=== PATIENT | female | born 2000 | race Caucasian/White ===

== ENCOUNTER 2020-05-15 17:25 | Inpatient (IN) ==
[2020-05-15 18:21] LABS: Appearance Urine Clear (Clear); Bacteria Urine Automated Negative (Negative); Bilirubin Urine Negative (Negative); Blood Urine 3+ (Negative); Color Urine Yellow; Epithelial Cell Urine Auto 20-30 /lpf (0-5); Glucose Urine UA Negative (Negative); Ketones Urine Negative (Negative); Leukocyte Esterase Urine Negative (Negative); Nitrite Urine Negative (Negative); Protein Urine Negative (Negative); RBC Urine Automated 0-4 /hpf (0-4); Urobilinogen Urine Negative (Negative); pH Urine 7.5 (4.5-7.5)
[2020-05-15] MEDS ORDERED: lamoTRIgine 25 MG TAB PO ONE (18:25)
[2020-05-15] MEDS ORDERED: DOXYCYCLINE HYCLATE 100 MG CAP PO STA (18:25)
[2020-05-15 18:29] LABS: Basophils # (auto) 0.03 K/uL (0-0.2); Basophils % (auto) 0.3 %; Eosinophils # (auto) 0.08 K/uL (0-0.5); Eosinophils % (auto) 0.7 %; Hematocrit (blood only) 41.4 % (37-47); Hemoglobin 14.3 g/dL (12.0-16.0); Immature Granulocytes # (auto) 0.02 K/uL (0.00-0.02); Immature Granulocytes % (auto) 0.2 %; Lymphocytes # (auto) 2.42 K/uL (1.2-3.4); Lymphocytes % (auto) 21.4 %; Mean Corpuscular Hemoglobin 33.4 pg (25-34); Mean Corpuscular Hgb Conc 34.5 g/dL (32-36); Mean Corpuscular Volume 96.7 fL (80-100); Mean Platelet Volume 10.4 fL (7.4-10.4); Monocytes # (auto) 0.88 K/uL (0.11-0.59); Monocytes % (auto) 7.8 %; Neutrophils # (auto) 7.86 K/uL (1.4-6.5); Neutrophils % (auto) 69.6 %; Platelet Count 297 K/uL (130-400); RDW Coefficient of Variation 12.6 % (11.5-14.5); RDW Standard Deviation 44.2 fL (36.4-46.3); Red Blood Count 4.28 M/uL (4.2-5.4); White Blood Count 11.29 K/uL (4.8-10.8)
--- NOTE | 2020-05-15 18:31 | Emergency Department Note ---
Impression & Plan Depression with suicidal ideation, Folliculitis ED Provider Note Provider: Surinder Montague MD DATE OF SERVICE:05/15/2020 CHIEF COMPLAINT: Mental health evaluation HISTORY OF PRESENT ILLNESS: Patient is a 19-year-old female history of depression presenting today stating that she is had worsening depression and suicidal ideations over the last several weeks. Patient states he has had some long-term issues and has had some cutting in the past since at least middle school. Patient states this semester with the pandemic and being a [employer] student things have worsened particularly over the last month or so. Patient states that she is currently seeing a therapist twice a week and does have a psychiatrist. Has been on Lamictal but states things are going really well so she stopped it and is now just being retitrated up on it. She states she is having more intrusive thoughts of wanting to cut herself and to bleed out or possibly to jump off the balcony. Patient states she is not made attempts to do this but is feeling unsafe. Patient states he currently is older twin sister who also has some issues going on but does not elaborate. Patient states she is not been sleeping well and not doing class work well and has mainly been staying at home. 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 Was seen by doctor 6 days ago and tested for STDs which was negative. Had strep throat and did report some possible overlying skin infe ction started on doxycycline for this. Patient states is not improving that much which continues to pick at it some. Denies significant pain or vaginal discharge at this time. Denies significant abdominal pain. Denies fever. REVIEW OF SYSTEMS: A total of 10 review of systems was obtained and negative except as stated above in the HPI. PAST MEDICAL HISTORY: As noted above MEDICATIONS: Reviewed home medications with the patient SOCIAL HISTORY: [employer] student, lives in apartment here with twin sister but originally from the [place] area PHYSICAL EXAM: GENERAL: alert and oriented in no acute distress on stretcher Head: normocephalic and atraumatic EYES: No injection, discharge or icterus. ENT: Mucous membranes pink and moist. LUNGS: Airway patent. No retractions. Breath sounds clear with good air entry bilaterally. HEART: Regular rate and rhythm. No chest wall tenderness SKIN: Acyanotic, warm, dry, without rashes noted on the visual skin. With her chief risk officer later on me to visualize slight folliculitis in the groin region and on the left outer labia with some tenderness but no clear large fluctuant mass for drainage. EXTREMITIES: Without swelling, tenderness or deformity NEUROLOGICAL: No focal deficits. No aphasia. No facial droop or slurred speech. Psych: States she has depression anxiety but a fairly normal affect. Denies any HI. Reports the depression is gone to the point was having some suicidal thoughts but is not acted on these. Patient's laboratory studies reviewed. Differential includes Mood disorder, infection, hypoglycemia, electrolyte abno rmalities, cardiac sources, intracerebral event, toxicologic, trauma, neurologic, as well as other pathologies. IMPRESSION/MEDICAL DECISION MAKING: Patient presents in basic medical laboratory studies were ordered. Urinalysis is unremarkable. Leukocyte does 11.29 is nonspecific. No significant toxicology abnormalities noted. Appears well and does not appear septic at this time. States she has been picking little bit has some of a skin groin infection but declines further evaluation here for this states she is already been seen for and on an antibiotic. Later patient's mother arrived and discussed findings. At that point with her chief risk officer the area was observed and looks like some folliculitis and possibly early linings for slight abscess. Nothing I think drainable at this time. We will put on a course of Keflex for 5 days and extend the doxycycline for an additional 5 days. Discussed with her her underlying psychiatric issues and recently going back on Lamictal. Home dose of Lamictal and doxycycline ordered as she has not taken them yet today. Patient states she has not been in discussion with her parents until this evening and they are on the way to the hospital. Seen in conjunction with psychiatric caseworker intake. Patient endorses some anxiety depression and having some suicidal thoughts now some slightly more intrusive thoughts of planning to harm her self but has not acted. Does have outpatient psychiatrist and therapist. Patient requesting inpatient treatment bleed is reasonable given her worsening depression with suicidal ideation. Patient's mother in agreement. Referrals to [facility] S. were made. Covid negative at this time. Accepted to for further care and treatment on . DIAGNOSIS: Depression with suicidal ideation, folliculitis DISPOSITION: Referrals for inpatient psychiatric treatment. Past Med/Surg History Social History Smoking Status: Never smoker Preferred Language: Swedish Feels Safe at Home: Yes Allergies Allergies Allergy/AdvReac Type Severity Reaction Status Date / Time No Known Allergies Allergy Verified 05/15/20 18:00 Home Meds Home Medications Medication Instructions Recorded Confirmed doxycycline hyclate 100 mg PO BID 05/15/20 05/15/20 lamotrigine [Lamictal] 25 mg PO DAILY 05/15/20 05/15/20 norethindrone-ethin estradiol 1 tab PO DAILY 05/15/20 05/15/20 [Norethin 1/35E (28)] Results & Data (ED) Vital Signs Vital Signs - 24 hr 05/15/20 17:36 05/15/20 18:35 05/15/20 19:20 Temperature 36.9 C Temperature Source Oral Pulse Rate 117 H Pulse Rate [Finger] 62 70 Pulse Rhythm Regular Pulse Rhythm [Finger] Regular Pulse Strength Normal Pulse Strength [Finger] Normal Respiratory Rate 16 16 18 Respiratory Effort / Characteristics Non-Labored Non-Labored Non-Labored Respiratory Depth Normal Normal Normal Respiratory Pattern Regular Regular Blood Pressure 122/85 Blood Pressure [Right Arm] 100/79 115/72 Blood Pressure Mean 97 Blood Pressure Mean [Right Arm] 86 86 Blood Pressure Position Sitting Blood Pressure Position [Right Arm] Sitting Pulse Oximetry 96 98 98 Oxygen Delivery Method Room Air Room Air Room Air Sepsis Recent Fever Within 48 Hours No Sepsis New/Unexplained Change in Mental Status N/A Sepsis Action Taken by Nursing No Action Required Laboratory Data Result diagrams: 05/15/20 18:02 05/15/20 18:02 Lab Results 05/15/20 05/15/20 05/15/20 Range/Units 17:56 17:56 17:56 WBC (4.8-10.8) K/uL RBC (4.2-5.4) M/uL Hgb (12.0-16.0) g/dL Hct (37-47) % MCV (80-100) fL MCH (25-34) pg MCHC (32-36) g/dL RDW Std Deviation (36.4-46.3) fL RDW Coeff of Vinnie (11.5-14.5) % Plt Count (130-400) K/uL MPV (7.4-10.4) fL Immature Gran % (Auto) % Neut % (Auto) % Lymph % (Auto) % Newberry % (Auto) % Eos % (Auto) % Baso % (Auto) % Neut # (Auto) (1.4-6.5) K/uL Lymph # (Auto) (1.2-3.4) K/uL Newberry # (Auto) (0.11-0.59) K/uL Eos # (Auto) (0-0.5) K/uL Baso # (Auto) (0-0.2) K/uL Immature Gran # (Auto) (0.00-0.02) K/uL Sodium (136-145) mmol/L Potassium (3.5-5.1) mmol/L Chloride (98-107) mmol/L Carbon Dioxide (21-32) mmol/L Anion Gap (3-11) BUN (7-18) mg/dl Creatinine (0.6-1.2) mg/dl Est Cr Clr Drug Dosing ml/min Est GFR ( Amer) Est GFR (Non-Af Amer) BUN/Creatinine Ratio (10-20) Glucose (70-99) mg/dl Calcium (8.5-10.1) mg/dl Total Bilirubin (0.2-1) mg/dl AST (15-37) U/L ALT (12-78) U/L Alkaline Phosphatase (45-117) U/L Total Protein (6.4-8.2) gm/dl Albumin (3.4-5.0) gm/dl Globulin (2.5-4.0) gm/dl Albumin/Globulin Ratio (0.9-2) TSH (0.300-4.500) uIu/ml Urine Color Yellow Urine Appearance Clear (Clear) Urine pH 7.5 (4.5-7.5) Ur Specific Garfield 1.010 (1.000-1.030) Urine Protein Negative (Negative) Urine Glucose (UA) Negative (Negative) Urine Ketones Negative (Negative) Urine Blood 3+ H (Negative) Urine Nitrite Negative (Negative) Urine Bilirubin Negative (Negative) Urine Urobilinogen Negative (Negative) Ur Leukocyte Esterase Negative (Negative) Urine WBC (Auto) 1-5 (0-5) /hpf Urine RBC (Auto) 0-4 (0-4) /hpf U Hyaline Cast (Auto) 1-5 (0-5) /lpf U Epithel Cells (Auto) 20-30 H (0-5) /lpf Urine Bacteria (Auto) Negative (Negative) POC Ur Test NEG (NEG) Salicylates (2.8-20) mg/dl Urine Opiates Screen Neg (Neg) Ur Methadone, Qual Neg (Neg) Acetaminophen (10-30) ug/ml Urine Barbiturates Neg (Neg) Ur Phencyclidine (PCP) Neg (Neg) U Amphetamin/Meth Scrn Neg (Neg) MDMA (Ecstasy) Screen Neg (Neg) U Benzodiazepines Scrn Neg (Neg) Ur Cocaine Metabolite Neg (Neg) U Marijuana (THC) Screen Pos H (Neg) Ethyl Alcohol mg/dL (0-3) mg/dl COVID-19 Eval Order SARS-CoV-2, RNA, NAAT (NEGATIVE) 05/15/20 05/15/20 05/15/20 Range/Units 18:02 18:02 18:02 WBC 11.29 H (4.8-10.8) K/uL RBC 4.28 (4.2-5.4) M/uL Hgb 14.3 (12.0-16.0) g/dL Hct 41.4 (37-47) % MCV 96.7 (80-100) fL MCH 33.4 (25-34) pg MCHC 34.5 (32-36) g/dL RDW Std Deviation 44.2 (36.4-46.3) fL RDW Coeff of Vinnie 12.6 (11.5-14.5) % Plt Count 297 (130-400) K/uL MPV 10.4 (7.4-10.4) fL Immature Gran % (Auto) 0.2 % Neut % (Auto) 69.6 % Lymph % (Auto) 21.4 % Newberry % (Auto) 7.8 % Eos % (Auto) 0.7 % Baso % (Auto) 0.3 % Neut # (Auto) 7.86 H (1.4-6.5) K/uL Lymph # (Auto) 2.42 (1.2-3.4) K/uL Newberry # (Auto) 0.88 H (0.11-0.59) K/uL Eos # (Auto) 0.08 (0-0.5) K/uL Baso # (Auto) 0.03 (0-0.2) K/uL Immature Gran # (Auto) 0.02 (0.00-0.02) K/uL Sodium 139 (136-145) mmol/L Potassium 3.5 (3.5-5.1) mmol/L Chloride 109 H (98-107) mmol/L Carbon Dioxide 24 (21-32) mmol/L Anion Gap 6.0 (3-11) BUN 6 L (7-18) mg/dl Creatinine 0.66 (0.6-1.2) mg/dl Est Cr Clr Drug Dosing 118.4 ml/min Est GFR ( Amer) 148.4 Est GFR (Non-Af Amer) 128.1 BUN/Creatinine Ratio 8.7 L (10-20) Glucose 115 H (70-99) mg/dl Calcium 9.6 (8.5-10.1) mg/dl Total Bilirubin 0.2 (0.2-1) mg/dl AST 42 H (15-37) U/L ALT 69 (12-78) U/L Alkaline Phosphatase 80 (45-117) U/L Total Protein 7.4 (6.4-8.2) gm/dl Albumin 3.8 (3.4-5.0) gm/dl Globulin 3.6 (2.5-4.0) gm/dl Albumin/Globulin Ratio 1.0 (0.9-2) TSH 0.740 (0.300-4.500) uIu/ml Urine Color Urine Appearance (Clear) Urine pH (4.5-7.5) Ur Specific Garfield (1.000-1.030) Urine Protein (Negative) Urine Glucose (UA) (Negative) Urine Ketones (Negative) Urine Blood (Negative) Urine Nitrite (Negative) Urine Bilirubin (Negative) Urine Urobilinogen (Negative) Ur Leukocyte Esterase (Negative) Urine WBC (Auto) (0-5) /hpf Urine RBC (Auto) (0-4) /hpf U Hyaline Cast (Auto) (0-5) /lpf U Epithel Cells (Auto) (0-5) /lpf Urine Bacteria (Auto) (Negative) POC Ur Test (NEG) Salicylates < 1.7 L (2.8-20) mg/dl Urine Opiates Screen (Neg) Ur Methadone, Qual (Neg) Acetaminophen 8 L (10-30) ug/ml Urine Barbiturates (Neg) Ur Phencyclidine (PCP) (Neg) U Amphetamin/Meth Scrn (Neg) MDMA (Ecstasy) Screen (Neg) U Benzodiazepines Scrn (Neg) Ur Cocaine Metabolite (Neg) U Marijuana (THC) Screen (Neg) Ethyl Alcohol mg/dL (0-3) mg/dl COVID-19 Eval Order SARS-CoV-2, RNA, NAAT (NEGATIVE) 05/15/20 05/15/20 05/15/20 Range/Units 18:02 19:07 19:07 WBC (4.8-10.8) K/uL RBC (4.2-5.4) M/uL Hgb (12.0-16.0) g/dL Hct (37-47) % MCV (80-100) fL MCH (25-34) pg MCHC (32-36) g/dL RDW Std Deviation (36.4-46.3) fL RDW Coeff of Vinnie (11.5-14.5) % Plt Count (130-400) K/uL MPV (7.4-10.4) fL Immature Gran % (Auto) % Neut % (Auto) % Lymph % (Auto) % Newberry % (Auto) % Eos % (Auto) % Baso % (Auto) % Neut # (Auto) (1.4-6.5) K/uL Lymph # (Auto) (1.2-3.4) K/uL Newberry # (Auto) (0.11-0.59) K/uL Eos # (Auto) (0-0.5) K/uL Baso # (Auto) (0-0.2) K/uL Immature Gran # (Auto) (0.00-0.02) K/uL Sodium (136-145) mmol/L Potassium (3.5-5.1) mmol/L Chloride (98-107) mmol/L Carbon Dioxide (21-32) mmol/L Anion Gap (3-11) BUN (7-18) mg/dl Creatinine (0.6-1.2) mg/dl Est Cr Clr Drug Dosing ml/min Est GFR ( Amer) Est GFR (Non-Af Amer) BUN/Creatinine Ratio (10-20) Glucose (70-99) mg/dl Calcium (8.5-10.1) mg/dl Total Bilirubin (0.2-1) mg/dl AST (15-37) U/L ALT (12-78) U/L Alkaline Phosphatase (45-117) U/L Total Protein (6.4-8.2) gm/dl Albumin (3.4-5.0) gm/dl Globulin (2.5-4.0) gm/dl Albumin/Globulin Ratio (0.9-2) TSH (0.300-4.500) uIu/ml Urine Color Urine Appearance (Clear) Urine pH (4.5-7.5) Ur Specific Garfield (1.000-1.030) Urine Protein (Negative) Urine Glucose (UA) (Negative) Urine Ketones (Negative) Urine Blood (Negative) Urine Nitrite (Negative) Urine Bilirubin (Negative) Urine Urobilinogen (Negative) Ur Leukocyte Esterase (Negative) Urine WBC (Auto) (0-5) /hpf Urine RBC (Auto) (0-4) /hpf U Hyaline Cast (Auto) (0-5) /lpf U Epithel Cells (Auto) (0-5) /lpf Urine Bacteria (Auto) (Negative) POC Ur Test (NEG) Salicylates (2.8-20) mg/dl Urine Opiates Screen (Neg) Ur Methadone, Qual (Neg) Acetaminophen (10-30) ug/ml Urine Barbiturates (Neg) Ur Phencyclidine (PCP) (Neg) U Amphetamin/Meth Scrn (Neg) MDMA (Ecstasy) Screen (Neg) U Benzodiazepines Scrn (Neg) Ur Cocaine Metabolite (Neg) U Marijuana (THC) Screen (Neg) Ethyl Alcohol mg/dL < 3.0 (0-3) mg/dl COVID-19 Eval Order Covid19 [facility] SARS-CoV-2, RNA, NAAT NEGATIVE (NEGATIVE) Administered Medications Discontinued Medications Cephalexin HCl (Cephalexin 250 Mg Cap) 500 mg PO NOW ONE Stop: 05/15/20 21:04 Last Admin: 05/15/20 21:18 Dose: 500 mg Documented by: [id number] Doxycycline Hyclate (Doxycycline Hyclate 100 Mg Cap) 100 mg PO NOW STA Stop: 05/15/20 18:26 Last Admin: 05/15/20 21:18 Dose: 100 mg Documented by: [id number] Lamotrigine (Lamotrigine 25 Mg Tab) 25 mg PO ONCE ONE Stop: 05/15/20 18:26 Last Admin: 05/15/20 18:45 Dose: 25 mg Documented by: [id number] Discharge Plan Visit Data Chief Complaint: Mental Health Evaluation Stated Complaint: MENTAL HEALTH EVAL ED Provider: Surinder Montague Discharge Problem: Depression with suicidal ideation, Folliculitis Patient Disposition: Admitted As Inpatient Discharge Instructions Interventions: ED Discharge Assessment Last Done: 05/15/20 22:19
[2020-05-15 18:50] LABS: Albumin Level 3.8 gm/dl (3.4-5.0); BUN Creatinine Ratio 8.7 (10-20); Calcium 9.6 mg/dl (8.5-10.1); Creatinine Clr Calc Pharmacy 118.4 ml/min; Est GFR (African American) 148.4; Est GFR (Non-African American) 128.1; Potassium 3.5 mmol/L (3.5-5.1)
[2020-05-15 18:52] LABS: Acetaminophen 8 ug/ml (10-30); Salicylate < 1.7 mg/dl (2.8-20)
[2020-05-15 19:01] LABS: Bilirubin,Total 0.2 mg/dl (0.2-1); Globulin 3.6 gm/dl (2.5-4.0); Thyroid Stimulating Hormone 0.74 uIu/ml (0.300-4.500); Total Protein 7.4 gm/dl (6.4-8.2)
[2020-05-15 19:03] LABS: Amphetamines+Metham, Urine Neg (Neg); Barbiturates, Urine Neg (Neg); Benzodiazepine, Urine Neg (Neg); Cocaine, Urine Neg (Neg); MDMA (Ecstacy), Urine Neg (Neg); Methadone, Urine Neg (Neg); Opiate, Urine Neg (Neg); Phencyclidine, Urine Neg (Neg)
[2020-05-15] MEDS ORDERED: cephALEXin 250 MG CAP PO ONE (21:03)
[2020-05-15] MEDS ORDERED: hydrOXYzine HCl 25 MG TAB PO PRN (22:26)
[2020-05-15] MEDS ORDERED: SODIUM CHLORIDE 0.65% NA SOLN 45 ML (OCEAN) PRN (22:26)
[2020-05-15] MEDS ORDERED: MAGNESIUM HYDROXIDE SUSP 30 ML UDC PO PRN (22:26)
[2020-05-15] MEDS ORDERED: ALUMINUM/MAGNESIUM SUSP 30 ML UDC PO PRN (22:26)
[2020-05-15] MEDS ORDERED: BISMUTH SUBSALICYLATE LIQD 236 ML PO PRN (22:26)
[2020-05-15] MEDS: ACETAMINOPHEN 325 MG TAB PO PRN (23:12)
[2020-05-15] MEDS: hydrOXYzine HCl 25 MG TAB PO PRN (23:45)
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
[2020-05-16] MEDS: ACETAMINOPHEN 325 MG TAB PO PRN ×2 (08:23→17:40)
[2020-05-16] MEDS: cephALEXin 500 MG CAP PO SCH ×4 (08:48→21:10)
[2020-05-16] MEDS: lamoTRIgine 25 MG TAB PO SCH (08:48)
[2020-05-16] MEDS: DOXYCYCLINE HYCLATE 100 MG CAP PO SCH ×2 (08:48→21:11)
[2020-05-16] MEDS: ORAL CONTRACEPTIVE: ORDER AWAITING ACTION SCH ×2 (13:31→17:38)
[2020-05-16] MEDS: hydrOXYzine HCl 25 MG TAB PO PRN (23:59)
[2020-05-17] MEDS: DOXYCYCLINE HYCLATE 100 MG CAP PO SCH ×2 (08:43→20:44)
[2020-05-17] MEDS: cephALEXin 500 MG CAP PO SCH ×4 (08:43→20:44)
[2020-05-17] MEDS: lamoTRIgine 25 MG TAB PO SCH (08:43)
[2020-05-17] MEDS: ACETAMINOPHEN 325 MG TAB PO PRN (08:44)
[2020-05-17] MEDS: ORAL CONTRACEPTIVE: ORDER AWAITING ACTION SCH ×3 (08:46→23:42)
--- NOTE | 2020-05-17 09:20 | Psychiatric Progress Note ---
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 She has been poorly adherent with lamotrigine, but has been taking it for the past 5 days, and agreed to take it as prescribed, after reviewing risks of nonadherence. She has outpatient therapist and nurse practitioner in the [place] area, and parents/siblings are supportive. 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 Inpatient treatment is medically necessary due to the severity of symptoms and risk for suicide if discharged. (1) Bipolar 1 disorder: 05/16 - Reviewed diagnoses with patient and treatment recommendations including use of medications and therapy. Reviewed risks, benefits, and side effects of lamotrigine, as well as alternatives (although other mood stabilizers have higher side effect burden). She agreed to continue/resume the medication, and reviewed importance of taking daily, and risk of SJS. Continue 25 mg daily, and as she has only been taking it daily for the past 5 days, will increase to 50 mg daily in another 15 days (05/30/2020). -Reviewed ways to improve medication adherence, and her h/o problems taking pills, which she relates to her experiences with having health issues as an adolescent, when she was taking medication for chronic pain and feeling distres sed, and feeling her parents didn't care/understand - now triggers memories of this when she has to take pills. We will continue to process and work on this in therapy here. -Coordinate care with outpatient clinician, Stanislav Villa STORE FACILITY TECHNICIAN at [facility] - called and left message requesting call to discuss care. -Family meeting with parents/sister. 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 -Suicide checks for safety. Encourage group attendance participation, work on healthy coping skills and discharge safety plan. 05/17 - Continue as above - patient continues to verbalize desire to remain on lamotrigine. Previous dose was reportedly 100mg, but patient states additional titration had been considered in the past. - Continue to encourage medication adherence - Schedule family meeting - patient requesting both parents and sister participate - Student Care and Advocacy referral (2) Anorexia: 05/16 -anorexia nervosa, restricting type. BMI in the normal range at 22.6, but actively restricts calories and believes she needs to lose weight. She has never had eating disorder treatment in the past, and reviewed that although this will not be a focus of her treatment here, she may benefit from ED treatment. She could access this through [facility] when in [place], but if retu rning home for the next couple of months we will need to explore options in the [place] area. Began discussion of reviewing food as medicine that she needs for her body to heal/work optimally, both from the perspective of improving/stabilizing her mood and allowing for optimal cognitive function/school performance. 05/17 - No concerns reported by staff regarding intention restriction or other eating concerns - Pt did have an episode of emesis yesterday morning - but presumed to be due to taking antibiotic medication with little food (3) Depersonalization: 05/16 -patient reports many years of depersonalization and derealization, which she has been discussing with her therapist. -Work on grounding techniques, deep breathing and meditation. 05/17 - Pt speaks more about this today - we reviewed grounding techniques and mindfulness that may help with these episodes - Pt encouraged to continue this conversation with her outpatient therapist as well (4) Folliculitis: 05/16 -continue doxycycline 100 mg twice daily X 5 days, and cephalexin 500 mg 4 times daily X 5 days per ER recommendations. Follow-up with [facility] if in [place], or PCP in [place] if she returns home with parents after discharge. -Behavioral techniques for decreasing skin picking. (5) Sexually active: 05/16 -patient is currently sexually active and has been noncompliant with oral contraceptives, but does not wish to get . We will encourage her to take her oral contraceptive as prescribed, and if she is unable or unwilling to do so, will recommend she follow-up with her [employer] RECEPTIONIST to explore other methods of contraception. Risk Factors Assessment Male: No : Yes Do You Have Access To A Gun?: No Health Problems: Yes Mental Health Diagnoses: Yes Substance Use Disorders: No Previous Attempt: Yes Previous Attempt; Highly Lethal: No Family History of Suicide: No Previous Psychiatric Hospitalization: No Hopelessness: No Smoker: No Protective Factors Assessment : No Responsible for Young Children: No Employed: No Stable Relationships: Yes Supportive Family: Yes Good Rapport with Provider: Yes Interval History Identifying Information DIMITRIOS GARCIA is a 19-year-old F [employer] student from [place], [place] who has a history of bipolar disorder per her report with outpatient care in [place], and was admitted on 05/15/20 22:26 on a 201 voluntary commitment for suicidal ideation with plans to overdose, cut herself, or jump off a balcony at her apartment. Chief Complaint "Um, good. Overall it's been good." Review of Systems Notes Constitutional: denied Cardiovascular: denied Respiratory: denied Gastrointestinal: denied Neurological: denied Psychiatric: denies symptoms other than stated above Total of at least 10 systems reviewed, pertinent positives as above and in HPI. Sleep Information Total Hours of Sleep: 6 Meal Information Percent Meal Consumed - Breakfast: 15 Percent Meal Consumed - Lunch: 90 Percent Meal Consumed - Dinner: 85 Nutrition Comment: pt. had episode of emesis after eating bkfst. Reports GI upset with ABX. Encouraged pt. to take meds with food Subjective Subjective Patient was seen & assessed and interval progress reviewed with nursing and social work. Staff report the patient has been kind and pleasant, interactive with peers, and participating in group programming. Pt requesting that a family meeting be scheduled with her parents and sister. Pt was seen today to assess progress since admission. Pt reports of her experience thus far "overall it's been good." Pt states that "I feel really safe here, which I think is what I needed most." Pt denies SI at this time, but admits she is still feeling overwhelmed and is not able to contract for safety outside of the hospital. Pt states that she feeling "guilty for being here, like I don't deserve the help." Some time was spent processing that thought. Pt also expressed concern that she has experiences "more derealization and depersonalization since I got here." Pt describes these experiences as "I look around and feel like everything is not real. I feel like zoomed out. Then there are times that I feel trapped inside of myself, like a really small me that can't get out." We spent some time reviewing grounding and mindfulness techniques that might be helpful during these episodes. Pt states sleep has improved with use of hydroxyzine and she wishes to continue this on a scheduled basis. Pt is willing for family meeting, but states "I'm very nervous." Pt states that historically, she has felt that her parents have gotten "upset with me for things that are kind of outside of my control." Pt was encouraged to develop a list of things she would like to prioritize during this meeting. Pt denied other needs or concerns at this time. Physical Exam Psychiatric Orientation: alert, oriented x 3 and cooperative Apperance: appropriately dressed, appropriately groomed and appeared stated age Eye Contact: good eye contact Motor Behavior: no abnormal motor movements and + psychomotor agitation (appearing somewhat restless) Speech: normal rate/rhythm/volume of speech (somewhat rapid speech, anxious tone) Affect: + anxious affect Mood: + anxious mood Thought Process: goal directed thought process and clear/coherent thought process Thought Content: reality based without delusions, + derealization (and depersonalization reported by patient) and + guilt (stating "I feel like I don't deserve the help") Suicidal Thoughts: denies suicidal thoughts and denies suicidal intent Homicidal Thoughts: denies homicidal thoughts Hallucinations: no auditory hallucinations and no visual hallucinations Cognition: attention grossly intact and language grossly intact Estimated Intelligence: consistent with education level Insight: + fair insight Judgement: + fair judgement Vital Signs (Past 24 Hours) Last Vital Signs Temp 36.7 C 05/17/20 06:48 Pulse 93 H 05/17/20 06:48 Resp 19 05/17/20 06:48 BP 92/55 L 05/17/20 06:48 Pulse Ox 98 05/15/20 22:35 Results & Data ([facility]) Current Inpatient Medications Current Inpatient Medications: Current Inpatient Medications Acetaminophen (Acetaminophen 325 Mg Tab) 650 mg PO Q4H PRN PRN Reason: Headache or Minor Fever Stop: 06/14/20 22:25 Last Admin: 05/17/20 08:44 Dose: 650 mg Documented by: Al Hydrox/Mg Hydrox/Simethicone (Aluminum/Magnesium Susp 30 Ml Udc) 30 ml PO Q4H PRN PRN Reason: GI Upset Stop: 06/14/20 22:25 Bismuth Subsalicylate (Bismuth Subsalicylate Liqd 236 Ml) 15 ml PO PRN PRN PRN Reason: Loose Stool Stop: 06/14/20 22:25 Cephalexin HCl (Cephalexin 500 Mg Cap) 500 mg PO QID CINDA Stop: 05/21/20 08:59 Last Admin: 05/17/20 08:43 Dose: 500 mg Documented by: Doxycycline Hyclate (Doxycycline Hyclate 100 Mg Cap) 100 mg PO BID CINDA Stop: 05/20/20 08:59 Last Admin: 05/17/20 08:43 Dose: 100 mg Documented by: Hydroxyzine HCl (Hydroxyzine Hcl 25 Mg Tab) 50 mg PO HSZ PRN PRN Reason: Insomnia Stop: 06/14/20 22:25 Last Admin: 05/16/20 23:59 Dose: 50 mg Documented by: Hydroxyzine HCl (Hydroxyzine Hcl 25 Mg Tab) 25 mg PO Q4H PRN PRN Reason: Anxiety Stop: 06/14/20 22:25 Lamotrigine (Lamotrigine 25 Mg Tab) 25 mg PO QAM [facility] Stop: 06/15/20 08:59 Last Admin: 05/17/20 08:43 Dose: 25 mg Documented by: Magnesium Hydroxide (Magnesium Hydroxide Susp 30 Ml Udc) 30 ml PO DAILY PRN PRN Reason: Constipation Stop: 06/14/20 22:25 Miscellaneous (Oral Contraceptive: Order Awaiting Action) 1 ea N/A QS [facility] Stop: 06/15/20 08:59 Last Admin: 05/17/20 08:46 Dose: Not Given Documented by: Sodium Chloride (Sodium Chloride 0.65% Na Soln 45 Ml ([place])) 1 - 2 sprays NA PRN PRN PRN Reason: Nasal Dryness/Congestion Stop: 06/14/20 22:25 Mental Health & Subst Abuse Tx Psychiatrist Date of Appointment with Psychiatrist: 05/22/20 Therapist Name of Therapist: Mela Donald
--- NOTE | 2020-05-17 14:47 | Communication Note ---
Date of Service: May 17, 2020 Phone Call with patient's outpatient Psychiatric Nurse Practitioner, Stanislav Villa Pt has been seen by Ms. Villa since 10/2019, consistently over the summer months but less consistent when the fallester started. It is reported that patient had presented with concern for depressive symptoms and chronic SI, but had reported discrete episodes of increased motivation and productivity, irritability and feeling "weird". These episodes were also notable for increased impulsive behavior and engaging in sexual activities. It was reported that the patient had failed numerous trials of SSRIs/SNRIs (fluoxetine, sertraline, venlafaxine, duloxetine) in past treatment, which had not seemed to induce the hypomanic symptoms, but patient felt they did make her feel worse. Ms. Villa indicates that the patient was started on lamotrigine due to failed antidepressant trials and there was a discussion about the possibility of a bipolar mood presentation. Pt was formally given a diagnosis of bipolar II disorder in 01/2020 following reports of a hypomanic episode in 12/2019 during a period in which she was noncompliant with lamotrigine. Pt reported feeling "invincible" with increased motivation and goal directed behavior and decreased need for sleep. It was reported that the patient's sister had noticed the change in behavior as well. Ms. Villa agrees that there are some additional diagnostic considerations at play, and the presence of an eating disorder, chronic pain disorder, and reports of depersonalization and derealization somewhat complicate the clinical picture. She states there have not been clear signs of an overt personality disorder, but she has noticed some odd traits separate from the bipolar II criteria. There are questions as to the presence of true episodes of derealization/depersonalization as well. No trauma history reported. These episodes initially occurred within the context of panic attacks, but then began to occur separately more recently. Ms. Villa states the patient has never reported a history of trauma, but does believe the [facility] diagnosis and the start of her eating disorder both occurred in 7th grade. There is familiarity with the patient's sister's presentation as well, and reports that the sisters do have separate valid mental health symptoms, but have historically had overlaps in their reports. Patient and her sister are reportedly very close, which is also felt to complicate the clinical picture at times. Ms. Villa did confirm the patient has an appointment scheduled for 05/22/2020 at 2:15. This could be done in person if the patient is back in the [place] area, or via TeleHealth if the patient prefers.
[2020-05-17] MEDS: hydrOXYzine HCl 25 MG TAB PO SCH (23:34)
[2020-05-18 00:25] LABS: Marijuana Quant, GCMS Urine 69 ng/mL (<5)
[2020-05-18] MEDS: ORAL CONTRACEPTIVE: ORDER AWAITING ACTION SCH ×3 (03:55→17:39)
[2020-05-18] MEDS: DOXYCYCLINE HYCLATE 100 MG CAP PO SCH ×2 (09:05→20:52)
[2020-05-18] MEDS: cephALEXin 500 MG CAP PO SCH ×4 (09:06→20:52)
[2020-05-18] MEDS: lamoTRIgine 25 MG TAB PO SCH (09:06)
--- NOTE | 2020-05-18 09:39 | Psychiatric Progress Note ---
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 She has been poorly adherent with lamotrigine, but has been taking it for the past 5 days, and agreed to take it as prescribed, after reviewing risks of nonadherence. She has outpatient therapist and nurse practitioner in the [place] area, and parents/siblings are supportive. 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 Inpatient treatment is medically necessary due to the severity of symptoms and risk for suicide if discharged. (1) Bipolar 1 disorder: 05/16 - Reviewed diagnoses with patient and treatment recommendations including use of medications and therapy. Reviewed risks, benefits, and side effects of lamotrigine, as well as alternatives (although other mood stabilizers have higher side effect burden). She agreed to continue/resume the medication, and reviewed importance of taking daily, and risk of SJS. Continue 25 mg daily, and as she has only been taking it daily for the past 5 days, will increase to 50 mg daily in another 15 days (05/30/2020). -Reviewed ways to improve medication adherence, and her h/o problems taking pills, which she relates to her experiences with having health issues as an adolescent, when she was taking medication for chronic pain and feeling distres sed, and feeling her parents didn't care/understand - now triggers memories of this when she has to take pills. We will continue to process and work on this in therapy here. -Coordinate care with outpatient clinician, Stanislav Villa JEWEL DIAMETER GAUGER at [facility] - called and left message requesting call to discuss care. -Family meeting with parents/sister. 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 -Suicide checks for safety. Encourage group attendance participation, work on healthy coping skills and discharge safety plan. 05/17 - Continue as above - patient continues to verbalize desire to remain on lamotrigine. Previous dose was reportedly 100mg, but patient states additional titration had been considered in the past. - Continue to encourage medication adherence - Schedule family meeting - patient requesting both parents and sister participate - Student Care and Advocacy referral 05/18 - Continue as above, titrating lamotrigine per standard schedule. Reporting ongoing SI, thought building more confidence with managing these thoughts - Supportive family meeting today - Meeting with Student Care and Advocacy this morning, patient planning to withdraw from the semester (2) Anorexia: 05/16 -anorexia nervosa, restricting type. BMI in the normal range at 22.6, but actively restricts calories and believes she needs to lose weight. She has never had eating disorder treatment in the past, and reviewed that although this will not be a focus of her treatment here, she may benefit from ED treatment. She could access this through [facility] when in [place], but if returning home for the next couple of months we will need to explore options in the [place] area. Began discussion of reviewing food as medicine that she needs for her body to heal/work optimally, both from the perspective of improving/stabilizing her mood and allowing for optimal cognitive function/schoo l performance. 05/17 - No concerns reported by staff regarding intention restriction or other eating concerns - Pt did have an episode of emesis yesterday morning - but presumed to be due to taking antibiotic medication with little food (3) Depersonalization: 05/16 -patient reports many years of depersonalization and derealization, which she has been discussing with her therapist. -Work on grounding techniques, deep breathing and meditation. 05/17 - Pt speaks more about this today - we reviewed grounding techniques and mindfulness that may help with these episodes - Pt encouraged to continue this conversation with her outpatient therapist as well (4) Folliculitis: 05/16 -continue doxycycline 100 mg twice daily X 5 days, and cephalexin 500 mg 4 times daily X 5 days per ER recommendations. Follow-up with [facility] if in [place], or PCP in [place] if she returns home with parents after discharge. -Behavioral techniques for decreasing skin picking. (5) Sexually active: 05/16 -patient is currently sexually active and has been noncompliant with oral contraceptives, but does not wish to get . We will encourage her to take her oral contraceptive as prescribed, and if she is unable or unwilling to do so, will recommend she follow-up with her FINANCIAL ECONOMIST to explore other methods of contraception. 05/18 - OBGYN appointment scheduled Risk Factors Assessment Male: No : Yes Do You Have Access To A Gun?: No Health Problems: Yes Mental Health Diagnoses: Yes Substance Use Disorders: No Previous Attempt: Yes Previous Attempt; Highly Lethal: No Family History of Suicide: No Previous Psychiatric Hospitalization: No Hopelessness: No Smoker: No Protective Factors Assessment : No Responsible for Young Children: No Employed: No Stable Relationships: Yes Supportive Family: Yes Good Rapport with Provider: Yes Interval History Identifying Information DIMITRIOS GARCIA is a 19-year-old F [employer] student from [place], [place] who has a history of bipolar disorder per her report with outpatient care in [place], and was admitted on 05/15/20 22:26 on a 201 voluntary commitment for suicidal ideation with plans to overdose, cut herself, or jump off a balcony at her apartment. Chief Complaint "Both of my meetings went really well." Review of Systems Notes Constitutional: denied Cardiovascular: denied Respiratory: denied Gastrointestinal: denied Neurological: denied Psychiatric: denies symptoms other than stated above Total of at least 10 systems reviewed, pertinent positives as above and in HPI. Sleep Information Total Hours of Sleep: 4 Sleep Comments: Pt stayed up talking with roommate. Meal Information Percent Meal Consumed - Breakfast: 80 Percent Meal Consumed - Lunch: 100 Percent Meal Consumed - Dinner: 80 Nutrition Comment: Reports GI upset with ABX. Encouraged pt. to take meds with food Subjective Subjective Patient was seen & assessed and interval progress reviewed with treatment team. Staff report the patient has been participating in group and recreational programming. Pt participated in two meetings this morning, one with Student Care [employer] Advocacy and one with parents and twin sister. Pt was seen today after those meetings to assess progress since admission. Pt states "both of my meetings went really well." Pt states that she is planning to withdraw from this semester of school. She reports feeling comfortable with the process to complete this. Pt also feels her meeting with her family was beneficial, admitting "it was nice, my parents were supportive. My mom even said she was making a list, so I know she took it serious." Pt states that a large part of the meeting was on how to implement methods of improved communication. Pt states she was honest with parents that "not every day is going to be a good day, and that sometimes I may need to lay in bed. But also that I need their support more than I ask for it." Pt feels the conversation was helpful and feels they can continue to build on this improved communication. Pt does endorse continued SI, admittedly less frequently and "I feel like I can stop myself, but I'm nervous to do that when I leave." Pt does admit that she is worried about discharge. She has found hydroxyzine beneficial for sleep and anxiety and wishes to continue these medications on discharge. Pt denied acute needs or concerns at this time. Physical Exam Psychiatric Orientation: alert, oriented x 3 and cooperative Apperance: appropriately dressed, appropriately groomed and appeared stated age Eye Contact: good eye contact Motor Behavior: steady gait and station and no abnormal motor movements Speech: normal rate/rhythm/volume of speech Affect: + anxious affect Mood: + anxious mood Thought Process: goal directed thought process and clear/coherent thought process Thought Content: reality based without delusions; no hopelessness and no worthlessness Suicidal Thoughts: denies suicidal intent; + reports suicidal thoughts intermittent SI, but building confidence with managing these thoughts Homicidal Thoughts: denies homicidal thoughts Hallucinations: no auditory hallucinations and no visual hallucinations Cognition: recent memory grossly intact, attention grossly intact and language grossly intact Estimated Intelligence: consistent with education level Insight: + fair insight Judgement: + fair judgement Vital Signs (Past 24 Hours) Last Vital Signs Temp 36.6 C 05/18/20 06:47 Pulse 112 H 05/18/20 06:48 Resp 16 05/18/20 06:47 BP 91/66 L 05/18/20 06:48 Pulse Ox 98 05/15/20 22:35 Results & Data ([facility]) Laboratory Results Laboratory Results - last 24 hr 05/15/20 17:56 U Marijuana THC Carboxy 69 H Drug Screen Comment SEE NOTE Current Inpatient Medications Current Inpatient Medications: Current Inpatient Medications Acetaminophen (Acetaminophen 325 Mg Tab) 650 mg PO Q4H PRN PRN Reason: Headache or Minor Fever Stop: 06/14/20 22:25 Last Admin: 05/17/20 08:44 Dose: 650 mg Documented by: Al Hydrox/Mg Hydrox/Simethicone (Aluminum/Magnesium Susp 30 Ml Udc) 30 ml PO Q4H PRN PRN Reason: GI Upset Stop: 06/14/20 22:25 Bismuth Subsalicylate (Bismuth Subsalicylate Liqd 236 Ml) 15 ml PO PRN PRN PRN Reason: Loose Stool Stop: 06/14/20 22:25 Cephalexin HCl (Cephalexin 500 Mg Cap) 500 mg PO QID CINDA Stop: 05/21/20 08:59 Last Admin: 05/18/20 09:06 Dose: 500 mg Documented by: Doxycycline Hyclate (Doxycycline Hyclate 100 Mg Cap) 100 mg PO BID CINDA Stop: 05/20/20 08:59 Last Admin: 05/18/20 09:05 Dose: 100 mg Documented by: Hydroxyzine HCl (Hydroxyzine Hcl 25 Mg Tab) 25 mg PO Q4H PRN PRN Reason: Anxiety Stop: 06/14/20 22:25 Last Admin: 05/17/20 11:56 Dose: 25 mg Documented by: Hydroxyzine HCl (Hydroxyzine Hcl 25 Mg Tab) 50 mg PO HSZ CINDA Stop: 06/16/20 21:59 Last Admin: 05/17/20 23:34 Dose: 50 mg Documented by: Lamotrigine (Lamotrigine 25 Mg Tab) 25 mg PO QAM [facility] Stop: 06/15/20 08:59 Last Admin: 05/18/20 09:06 Dose: 25 mg Documented by: Magnesium Hydroxide (Magnesium Hydroxide Susp 30 Ml Udc) 30 ml PO DAILY PRN PRN Reason: Constipation Stop: 06/14/20 22:25 Miscellaneous (Oral Contraceptive: Order Awaiting Action) 1 ea N/A QS CINDA Stop: 06/15/20 08:59 Last Admin: 05/18/20 09:06 Dose: Not Given Documented by: Sodium Chloride (Sodium Chloride 0.65% Na Soln 45 Ml ([place])) 1 - 2 sprays NA PRN PRN PRN Reason: Nasal Dryness/Congestion Stop: 06/14/20 22:25 Mental Health & Subst Abuse Tx Psychiatrist Name of Psychiatrist: [facility] - Stanislav Villa, PRAKASH, PLISSE MACHINE OPERATOR HELPER, PMHNP- Psychiatrist's Date of Appointment with Psychiatrist: 05/22/20 Time of Appointment with Psychiatrist: 2:15 p.m. Psychiatric Appointment Comment: In person if back in [place], telehealth otherwise Therapist Name of Therapist: [facility], [facility] - Mela Donald Therapist's Therapy Appointment Comment: [id number] [place] [id number] Post Discharge Appointments Primary Care Physician Name Of Family Doctor: [facility] [place] - Dr. Brian Greene Primary Care Time of Appointment with PCP: Please follow up as needed Provider Appointment Comment: [phone], [id number], [place] [id number] Specialist Name of Specialist: [facility] FINANCIAL ECONOMIST Phone Number for Specialist: [phone] Date of Appointment with Specialist: 06/18/20 Specialty Appointment Comment: [address] [facility] [facility], [facility] [place] [address] Contact Information Discharge Discharge Address: [address] [place], [place] [address] [id number]
[2020-05-18] MEDS: hydrOXYzine HCl 25 MG TAB PO PRN (09:56)
[2020-05-19] MEDS: hydrOXYzine HCl 25 MG TAB PO SCH ×4 (00:03→23:32)
[2020-05-19] MEDS: ORAL CONTRACEPTIVE: ORDER AWAITING ACTION SCH ×3 (00:49→18:26)
[2020-05-19] MEDS: cephALEXin 500 MG CAP PO SCH ×4 (10:03→21:06)
[2020-05-19] MEDS: lamoTRIgine 25 MG TAB PO SCH (10:03)
[2020-05-19] MEDS: ACETAMINOPHEN 325 MG TAB PO PRN (10:04)
[2020-05-19] MEDS: DOXYCYCLINE HYCLATE 100 MG CAP PO SCH ×2 (10:05→21:07)
--- NOTE | 2020-05-19 17:48 | Psychiatric Progress Note ---
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 She has been poorly adherent with lamotrigine, but has been taking it for the past 5 days, and agreed to take it as prescribed, after reviewing risks of nonadherence. She has outpatient therapist and nurse practitioner in the [place] area, and parents/siblings are supportive. 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 Inpatient treatment is medically necessary due to the severity of symptoms and risk for suicide if discharged. (1) Bipolar 1 disorder: 05/16 - Reviewed diagnoses with patient and treatment recommendations including use of medications and therapy. Reviewed risks, benefits, and side effects of lamotrigine, as well as alternatives (although other mood stabilizers have higher side effect burden). She agreed to continue/resume the medication, and reviewed importance of taking daily, and risk of SJS. Continue 25 mg daily, and as she has only been taking it daily for the past 5 days, will increase to 50 mg daily in another 15 days (05/30/2020). -Reviewed ways to improve medication adherence, and her h/o problems taking pills, which she relates to her experiences with having health issues as an adolescent, when she was taking medication for chronic pain and feeling distres sed, and feeling her parents didn't care/understand - now triggers memories of this when she has to take pills. We will continue to process and work on this in therapy here. -Coordinate care with outpatient clinician, Stanislav Villa TAX CONSULTANT at [facility] - called and left message requesting call to discuss care. -Family meeting with parents/sister. 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 -Suicide checks for safety. Encourage group attendance participation, work on healthy coping skills and discharge safety plan. 05/17 - Continue as above - patient continues to verbalize desire to remain on lamotrigine. Previous dose was reportedly 100mg, but patient states additional titration had been considered in the past. - Continue to encourage medication adherence - Schedule family meeting - patient requesting both parents and sister participate - [facility] Advocacy referral 05/18 - Continue as above, titrating lamotrigine per standard schedule. Reporting ongoing SI, thought building more confidence with managing these thoughts - Supportive family meeting today - Meeting with Student [facility] [employer] Advocacy this morning, patient planning to withdraw from the semester 05/19 -Trend remains positive however suicidal ideation has not yet fully resolved and she presents as anxious with mildly racing thoughts and some acute anxiety demonstrated in discussion for discharge planning. As such, discussed postponing potential discharge date to Thursday and patient was agreeable -Due to lengthy titration necessary for lamotrigine, discussed risks and benefits of potentially short-term Seroquel trial including metabolic and motor side effects. Patient was agreeable and will start 25 mg p.o. nightly for tonight. If this is well-tolerated, she can continue and then attempt to wean off once Lamictal is titrated to a therapeutic dose as an outpatient. (2) Anorexia: 05/16 -anorexia nervosa, restricting type. BMI in the normal range at 22.6, but actively restricts calories and believes she needs to lose weight. She has never had eating disorder treatment in the past, and reviewed that although this will not be a focus of her treatment here, she may benefit from ED treatment. She could access this through [facility] when in [place], but if returning home for the next couple of months we will need to explore options in the [place] area. Began discussion of reviewing food as medicine that she needs for her body to heal/work optimally, both from the perspective of improving/stabilizing her mood and allowing for optimal cognitive function/school performance. 05/17 - No concerns reported by staff regarding intention restriction or other eating concerns - Pt did have an episode of emesis yesterday morning - but presumed to be due to taking antibiotic medication with little food (3) Depersonalization: 05/16 -patient reports many years of depersonalization and derealization, which she has been discussing with her therapist. -Work on grounding techniques, deep breathing and meditation. 05/17 - Pt speaks more about this today - we reviewed grounding techniques and mindfulness that may help with these episodes - Pt encouraged to continue this conversation with her outpatient therapist as well (4) Folliculitis: 05/16 -continue doxycycline 100 mg twice daily X 5 days, and cephalexin 500 mg 4 times daily X 5 days per ER recommendations. Follow-up with [facility] if in [place], or PCP in [place] if she returns home with parents after discharge. -Behavioral techniques for decreasing skin picking. (5) Sexually active: 05/16 -patient is currently sexually active and has been noncompliant with oral contraceptives, but does not wish to get . We will encourage her to take her oral contraceptive as prescribed, and if she is unable or unwilling to do so, will recommend she follow-up with her [employer] WORK[employer] to explore other methods of contraception. 05/18 - OBGYN appointment scheduled Risk Factors Assessment Male: No : Yes Do You Have Access To A Gun?: No Health Problems: Yes Mental Health Diagnoses: Yes Substance Use Disorders: No Previous Attempt: Yes Previous Attempt; Highly Lethal: No Family History of Suicide: No Previous Psychiatric Hospitalization: No Hopelessness: No Smoker: No Protective Factors Assessment : No Responsible for Young Children: No Employed: No Stable Relationships: Yes Supportive Family: Yes Good Rapport with Provider: Yes Interval History Identifying Information DIMIRTIOS GARCIA is a 19-year-old F [employer] student from [place], [place] who has a history of bipolar disorder per her report with outpatient care in [place], and was admitted on 05/15/20 22:26 on a 201 voluntary commitment for suicidal ideation with plans to overdose, cut herself, or jump off a balcony at her apartment. Chief Complaint "I feel like I am getting better but my thoughts are still really fast and I am still really anxious". Review of Systems Notes Reports chronic diffuse musculoskeletal pain, stable. Sleep Information Total Hours of Sleep: 3.5 Sleep Comments: Pt stayed up talking with roommate. Meal Information Percent Meal Consumed - Breakfast: 80 Percent Meal Consumed - Lunch: 100 Percent Meal Consumed - Dinner: 90 Nutrition Comment: Reports GI upset with ABX. Encouraged pt. to take meds with food Subjective Subjective Patient was seen & assessed and interval progress reviewed with treatment team. Per staff, patient met with family meeting and student advocate from [facility] yesterday telephonically. She is in the process of making decision regarding withdrawal from school enrollment. There is a consideration for potential discharge Thursday as she is scheduled for therapy follow-up on Thursday. On interview she describes positive trend with sleep and anxiety on Vistaril. States she likes the 12.5 mg dose for anxiety and 50 mg dose for insomnia. Describes making efforts to reframe and think more positively and identifying supports and work on more effective communication strategies. Today she reports reduced suicidal ideation however not yet resolved. She also identifies anxiety regarding potential discharge and fear for relapse/decompensation upon leaving the hospital. Reviewed need for consistent compliance with lamotrigine and necessary titration which will delay likely direct treatment benefit for several weeks. Discussed consideration for short term additional augmentation with atypical antipsychotic for mood stabilization, sleep, and anxiety and she was amenable to Seroquel trial as below. Reviewed prior treatment history on gabapentin for complex regional pain syndrome which she felt caused weight gain and poor treatment effect. Physical Exam Psychiatric Orientation: alert and cooperative Apperance: appropriately dressed and appropriately groomed (Mildly disheveled) Eye Contact: good eye contact Motor Behavior: steady gait and station (She appears mildly hyperactive) Speech is rapid but not pressured Affect: + anxious affect Mood: + anxious mood Thought Process: goal directed thought process and + perseveration Thought Content: reality based without delusions; no hopelessness Suicidal Thoughts: denies suicidal intent; + reports suicidal thoughts Homicidal Thoughts: denies homicidal thoughts Hallucinations: no auditory hallucinations, no visual hallucinations and no tactile hallucinations Cognition: + attention not intact (Attention mildly impaired) Insight: + fair insight Judgement: + fair judgement Vital Signs (Past 24 Hours) Last Vital Signs Temp 36.5 C 05/19/20 06:54 Pulse 87 05/19/20 06:54 Resp 16 05/19/20 06:54 BP 81/51 L 05/19/20 06:55 Pulse Ox 98 05/15/20 22:35 Results & Data ([facility]) Current Inpatient Medications Current Inpatient Medications: Current Inpatient Medications Acetaminophen (Acetaminophen 325 Mg Tab) 650 mg PO Q4H PRN PRN Reason: Headache or Minor Fever Stop: 06/14/20 22:25 Last Admin: 05/19/20 10:04 Dose: 650 mg Documented by: Al Hydrox/Mg Hydrox/Simethicone (Aluminum/Magnesium Susp 30 Ml Udc) 30 ml PO Q4H PRN PRN Reason: GI Upset Stop: 06/14/20 22:25 Bismuth Subsalicylate (Bismuth Subsalicylate Liqd 236 Ml) 15 ml PO PRN PRN PRN Reason: Loose Stool Stop: 06/14/20 22:25 Cephalexin HCl (Cephalexin 500 Mg Cap) 500 mg PO QID [facility] Stop: 05/21/20 08:59 Last Admin: 05/19/20 12:56 Dose: 500 mg Documented by: Doxycycline Hyclate (Doxycycline Hyclate 100 Mg Cap) 100 mg PO BID [facility] Stop: 05/20/20 08:59 Last Admin: 05/19/20 10:05 Dose: 100 mg Documented by: Hydroxyzine HCl (Hydroxyzine Hcl 25 Mg Tab) 50 mg PO HSZ [facility] Stop: 06/16/20 21:59 Last Admin: 05/19/20 00:03 Dose: 50 mg Documented by: Hydroxyzine HCl (Hydroxyzine Hcl 25 Mg Tab) 12.5 mg PO Q4H PRN PRN Reason: Anxiety Stop: 06/14/20 22:25 Last Admin: 05/18/20 09:56 Dose: 12.5 mg Documented by: Lamotrigine (Lamotrigine 25 Mg Tab) 25 mg PO QAM [facility] Stop: 06/15/20 08:59 Last Admin: 05/19/20 10:03 Dose: 25 mg Documented by: Magnesium Hydroxide (Magnesium Hydroxide Susp 30 Ml Udc) 30 ml PO DAILY PRN PRN Reason: Constipation Stop: 06/14/20 22:25 Miscellaneous (Oral Contraceptive: Order Awaiting Action) 1 ea N/A QS [facility] Stop: 06/15/20 08:59 Last Admin: 05/19/20 10:06 Dose: Not Given Documented by: Sodium Chloride (Sodium Chloride 0.65% Na Soln 45 Ml (Capac)) 1 - 2 sprays NA PRN PRN PRN Reason: Nasal Dryness/Congestion Stop: 06/14/20 22:25 Mental Health & Subst Abuse Tx Psychiatrist Name of Psychiatrist: [facility] - Stanislav Villa, PRAKASH, MEDICAL PRACTICE MANAGER, PMHNP- Psychiatrist's Date of Appointment with Psychiatrist: 05/22/20 Time of Appointment with Psychiatrist: 2:15 p.m. Psychiatric Appointment Comment: In person if back in [place], telehealth otherwise Therapist Name of Therapist: [facility], [facility] - Mela Donald Therapist's Date of Therapist Appointment: 05/21/20 Time of Therapist Appointment: 11:00 a.m. Therapy Appointment Comment: [address], [place] [address] Mems Engineer Name of Mems Engineer: [facility] - [facility] Phone Number for Mems Engineer: [phone] Date of Appointment with Mems Engineer: 05/22/20 Time of Appointment with Mems Engineer: 10:00 a.m. Case Management Appointment Comment: Will call you Post Discharge Appointments Primary Care Physician Name Of Family Doctor: [facility] - Dr. Brian Greene Primary Care Time of Appointment with PCP: Please follow up as needed Provider Appointment Comment: [address], [address], [place] [address] Specialist Name of Specialist: [facility] [employer] Phone Number for Specialist: [phone] Date of Appointment with Specialist: 06/18/20 Time of Appointment with Specialist: 8:30 a.m. Specialty Appointment Comment: [address] [facility] [place] [address] Contact Information Discharge Discharge Address: [address] [place] [address] [place] [address]
[2020-05-19] MEDS: QUEtiapine FUMARATE 25 MG TABLET PO SCH (21:08)
[2020-05-20] MEDS: ORAL CONTRACEPTIVE: ORDER AWAITING ACTION SCH ×3 (05:31→17:55)
[2020-05-20] MEDS: lamoTRIgine 25 MG TAB PO SCH (09:13)
[2020-05-20] MEDS: cephALEXin 500 MG CAP PO SCH ×4 (09:13→21:25)
[2020-05-20] MEDS: ACETAMINOPHEN 325 MG TAB PO PRN (13:03)
--- NOTE | 2020-05-20 13:06 | Psychiatric Progress Note ---
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 She has been poorly adherent with lamotrigine, but has been taking it for the past 5 days, and agreed to take it as prescribed, after reviewing risks of nonadherence. She has outpatient therapist and nurse practitioner in the [place] area, and parents/siblings are supportive. 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 Inpatient treatment is medically necessary due to the severity of symptoms and risk for suicide if discharged prematurely. (1) Bipolar 1 disorder: 05/16 - Reviewed diagnoses with patient and treatment recommendations including use of medications and therapy. Reviewed risks, benefits, and side effects of lamotrigine, as well as alternatives (although other mood stabilizers have higher side effect burden). She agreed to continue/resume the medication, and reviewed importance of taking daily, and risk of SJS. Continue 25 mg daily, and as she has only been taking it daily for the past 5 days, will increase to 50 mg daily in another 15 days (05/30/2020). -Reviewed ways to improve medication adherence, and her h/o problems taking pills, which she relates to her experiences with having health issues as an adolescent, when she was taking medication for chronic pain and feeling distressed, and feeling her parents didn't care/understand - now triggers memories of this when she has to take pills. We will continue to process and work on this in therapy here. -Coordinate care with outpatient clinician, Stanislav Villa [facility] M[employer] OPERATOR [facility] - called and left message requesting call to discuss care. -Family meeting with parents/sister. -Coordination with the [employer], as patient indicates she may need to withdraw from the semester. -Suicide checks for safety. Encourage group attendance participation, work on healthy coping skills and discharge safety plan. 05/17 - Continue as above - patient continues to verbalize desire to remain on lamotrigine. Previous dose was reportedly 100mg, but patient states additional titration had been considered in the past. - Continue to encourage medication adherence - Schedule family meeting - patient requesting both parents and sister participate - [facility] referral 05/18 - Continue as above, titrating lamotrigine per standard schedule. Reporting ongoing SI, thought building more confidence with managing these thoughts - Supportive family meeting today - Meeting with [facility] this morning, patient planning to withdraw from the semester 05/19 -Trend remains positive however suicidal ideation has not yet fully resolved and she presents as anxious with mildly racing thoughts and some acute anxiety demonstrated in discussion for discharge planning. As such, discussed postponing potential discharge date to Thursday and patient was agreeable -Due to lengthy titration necessary for lamotrigine, discussed risks and benefits of potentially short-term Seroquel trial including metabolic and motor side effects. Patient was agreeable and will start 25 mg p.o. nightly for tonight. If this is well-tolerated, she can continue and then attempt to wean off once Lamictal is titrated to a therapeutic dose as an outpatient. 05/20 -Continue Seroquel 25 mg p.o. nightly. Again reviewed potential metabolic risks as above and patient expressed agreeableness to continuing the treatment as previously recommended and will consider appropriateness of discontinuing as an outpatient with her outpatient provider. -Will check fasting glucose and lipid panel for baseline tomorrow morning as she will be discharged on the antipsychotic -Patient now reporting complete resolution of suicidal ideation and feeling ready for discharge. We will plan for discharge tomorrow as appropriate -Reviewed importance of medication compliance and effort to achieve adequate mood stabilization as well as safety issues associated with her medication regimen. She endorsed willingness to make this a priority. She was encouraged to consider utilization of a pillbox as well as allowing a family member to help supervise medication compliance (2) Anorexia: 05/16 -anorexia nervosa, restricting type. BMI in the normal range at 22.6, but actively restricts calories and believes she needs to lose weight. She has never had eating disorder treatment in the past, and reviewed that although this will not be a focus of her treatment here, she may benefit from ED treatment. She could access this through [facility] when in [place], but if returning home for the next couple of months we will need to explore options in the [place] area. Began discussion of reviewing food as medicine that she needs for her body to heal/work optimally, both from the perspective of improving/stabilizing her mood and allowing for optimal cognitive function/school performance. 05/17 - No concerns reported by staff regarding intention restriction or other eating concerns - Pt did have an episode of emesis yesterday morning - but presumed to be due to taking antibiotic medication with little food 05/20 -Today we discussed healthy eating choices and encouraged goal of moderation over restriction (3) Depersonalization: 05/16 -patient reports many years of depersonalization and derealization, which she has been discussing with her therapist. -Work on grounding techniques, deep breathing and meditation. 05/17 - Pt speaks more about this today - we reviewed grounding techniques and mindfulness that may help with these episodes - Pt encouraged to continue this conversation with her outpatient therapist as well (4) Folliculitis: 05/16 -continue doxycycline 100 mg twice daily X 5 days, and cephalexin 500 mg 4 times daily X 5 days per ER recommendations. Follow-up with S if in [place], or PCP in [place] if she returns home with parents after discharge. -Behavioral techniques for decreasing skin picking. (5) Sexually active: 05/16 -patient is currently sexually active and has been noncompliant with oral contraceptives, but does not wish to get . We will encourage her to take her oral contraceptive as prescribed, and if she is unable or unwilling to do so, will recommend she follow-up with her HIGH SPEED OPERATOR to explore other methods of contraception. 05/18 - OBGYN appointment scheduled 05/20 -Consider discharging on vitamin (for folic acid supplementation) to reduce risk for neural tube defects on anticonvulsant if there is concern for continued noncompliance with contraception Risk Factors Assessment Male: No : Yes Do You Have Access To A Gun?: No Health Problems: Yes Mental Health Diagnoses: Yes Substance Use Disorders: No Previous Attempt: Yes Previous Attempt; Highly Lethal: No Family History of Suicide: No Previous Psychiatric Hospitalization: No Hopelessness: No Smoker: No Protective Factors Assessment : No Responsible for Young Children: No Employed: No Stable Relationships: Yes Supportive Family: Yes Good Rapport with Provider: Yes Interval History Identifying Information DIMITRIOS GARCIA is a 19-year-old F [employer] student from [place], [place] who has a history of bipolar disorder per her report with outpatient care in [place], and was admitted on 05/15/20 22:26 on a 201 voluntary commitment for suicidal ideation with plans to overdose, cut herself, or jump off a balcony at her apartment. Chief Complaint "It helped a lot". Review of Systems Notes Denies dizziness, hypersomnolence Sleep Information Total Hours of Sleep: 5.5 Sleep Comments: Pt stayed up talking with roommate. Meal Information Percent Meal Consumed - Breakfast: 100 Percent Meal Consumed - Lunch: 100 Percent Meal Consumed - Dinner: 90 Nutrition Comment: Reports GI upset with ABX. Encouraged pt. to take meds with food Subjective Subjective Patient was seen & assessed and interval progress reviewed with treatment team. Per staff, no acute events overnight. Described mood as a 6 out of 10 and grateful last evening. She was started on Seroquel last night for her correcting mood stabilization, sleep, and anxiolysis as it is going to take weeks for Lamictal to be titrated to a potentially therapeutic dose. Patient reports significant sleep benefit last night stating that it is the first night since she was hospitalized that she did not wake up throughout the night. Denies much in the way of residual sedation this morning. Does express some concern about potential weight gain as a side effect and we discussed monitoring trend as outpatient and hopefully this medication can be discontinued once mood stabilizes and she is on an effective dose of lamotrigine. Today she describes feeling more calm, less anxious, and reports resolution of any residual suicidal ideation in the last 24 hours. She indicates confidence that she will be able to maintain her safety upon discharge and feels that she will be ready for discharge tomorrow. She indicates that her family will be providing transportation. She indicates willingness to follow-up as an outpatient. Physical Exam Psychiatric Orientation: alert, oriented x 3 and cooperative Apperance: appropriately dressed, appropriately groomed and appeared stated age Eye Contact: good eye contact Motor Behavior: steady gait and station and no abnormal motor movements Speech: normal rate/rhythm/volume of speech; no pressured speech Affect: euthymic affect Mood: + anxious mood (but improving); no depressed mood Thought Process: goal directed thought process Thought Content: reality based without delusions Suicidal Thoughts: denies suicidal thoughts, denies suicidal plan and denies suicidal intent Homicidal Thoughts: denies homicidal thoughts Hallucinations: no auditory hallucinations, no visual hallucinations and no tactile hallucinations Cognition: recent memory grossly intact and remote memory grossly intact Estimated Intelligence: average estimated intelligence Insight: + fair insight Judgement: + fair judgement Vital Signs (Past 24 Hours) Last Vital Signs Temp 36.8 C 05/20/20 06:46 Pulse 112 H 05/20/20 06:47 Resp 16 05/20/20 06:46 BP 98/65 L 05/20/20 06:47 Pulse Ox 98 05/15/20 22:35 Results & Data ([facility]) Current Inpatient Medications Current Inpatient Medications: Current Inpatient Medications Acetaminophen (Acetaminophen 325 Mg Tab) 650 mg PO Q4H PRN PRN Reason: Headache or Minor Fever Stop: 06/14/20 22:25 Last Admin: 05/19/20 10:04 Dose: 650 mg Documented by: Al Hydrox/Mg Hydrox/Simethicone (Aluminum/Magnesium Susp 30 Ml Udc) 30 ml PO Q4H PRN PRN Reason: GI Upset Stop: 06/14/20 22:25 Bismuth Subsalicylate (Bismuth Subsalicylate Liqd 236 Ml) 15 ml PO PRN PRN PRN Reason: Loose Stool Stop: 06/14/20 22:25 Cephalexin HCl (Cephalexin 500 Mg Cap) 500 mg PO QID [facility] Stop: 05/21/20 08:59 Last Admin: 05/20/20 09:13 Dose: 500 mg Documented by: Hydroxyzine HCl (Hydroxyzine Hcl 25 Mg Tab) 50 mg PO HSZ CINDA Stop: 06/16/20 21:59 Last Admin: 05/19/20 23:32 Dose: 50 mg Documented by: Hydroxyzine HCl (Hydroxyzine Hcl 25 Mg Tab) 12.5 mg PO Q4H PRN PRN Reason: Anxiety Stop: 06/14/20 22:25 Last Admin: 05/18/20 09:56 Dose: 12.5 mg Documented by: Lamotrigine (Lamotrigine 25 Mg Tab) 25 mg PO QAM [facility] Stop: 06/15/20 08:59 Last Admin: 05/20/20 09:13 Dose: 25 mg Documented by: Magnesium Hydroxide (Magnesium Hydroxide Susp 30 Ml Udc) 30 ml PO DAILY PRN PRN Reason: Constipation Stop: 06/14/20 22:25 Miscellaneous (Oral Contraceptive: Order Awaiting Action) 1 ea N/A QS [facility] Stop: 06/15/20 08:59 Last Admin: 05/20/20 09:13 Dose: Not Given Documented by: Quetiapine Fumarate (Quetiapine Fumarate 25 Mg Tablet) 25 mg PO HS CINDA Stop: 06/18/20 21:59 Last Admin: 05/19/20 21:08 Dose: 25 mg Documented by: Sodium Chloride (Sodium Chloride 0.65% Na Soln 45 Ml ([place])) 1 - 2 sprays NA PRN PRN PRN Reason: Nasal Dryness/Congestion Stop: 06/14/20 22:25 Mental Health & Subst Abuse Tx Psychiatrist Name of Psychiatrist: [facility] - Stanislav Villa, PRAKASH, MARINE CHRONOMETER ASSEMBLER, PMSARAP- Psychiatrist's Date of Appointment with Psychiatrist: 05/22/20 Time of Appointment with Psychiatrist: 2:15 p.m. Psychiatric Appointment Comment: In person if back in [place], telehealth otherwise Therapist Name of Therapist: [facility], [facility] - Mela Donald Therapist's Date of Therapist Appointment: 05/21/20 Time of Therapist Appointment: 11:00 a.m. Therapy Appointment Comment: [address] [place] [address], [place] [id number] Well Services Operator Name of Well Services Operator: [facility] - [facility] Phone Number for Well Services Operator: [phone] Date of Appointment with Well Services Operator: 05/22/20 Time of Appointment with Well Services Operator: 10:00 a.m. Case Management Appointment Comment: Will call you Post Discharge Appointments Primary Care Physician Name Of Family Doctor: [facility] - Dr. Brian Greene Primary Care Time of Appointment with PCP: Please follow up as needed Provider Appointment Comment: [address], [id number], [place] [address] Specialist Name of Specialist: [facility] HIGH SPEED OPERATOR Phone Number for Specialist: [phone] Date of Appointment with Specialist: 06/18/20 Time of Appointment with Specialist: 8:30 a.m. Specialty Appointment Comment: [address] [facility], [place] [address] Contact Information Discharge Discharge Address: [address] [place] [address]
[2020-05-20] MEDS: hydrOXYzine HCl 25 MG TAB PO PRN (15:57)
[2020-05-20] MEDS: QUEtiapine FUMARATE 25 MG TABLET PO SCH (22:27)
[2020-05-20] MEDS: hydrOXYzine HCl 25 MG TAB PO SCH (22:28)
[2020-05-21] MEDS: hydrOXYzine HCl 25 MG TAB PO SCH (00:07)
[2020-05-21] MEDS: ORAL CONTRACEPTIVE: ORDER AWAITING ACTION SCH ×2 (01:50→09:04)
[2020-05-21 08:08] LABS: Glucose Fasting 78 mg/dl (70-99)
[2020-05-21 08:14] LABS: Chol HDL Ratio 3; Cholesterol 117 mg/dl (0-200); HDL Cholesterol 45 mg/dl; LDL Cholesterol Calculated 50 mg/dl; Triglycerides 112 mg/dl (0-150); VLDL Cholesterol 22 mg/dl
[2020-05-21] MEDS: lamoTRIgine 25 MG TAB PO SCH (09:03)
--- NOTE | 2020-05-21 09:07 | Discharge Summary ---
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 interim. Follow-up scheduled with BRICK MASON to discuss alternate contraceptive options. Mental Health & Subst Abuse Tx Psychiatrist Name of Psychiatrist: [facility] - Stanislav Villa DNP, [place], [place]- Psychiatrist's Date of Appointment with Psychiatrist: 05/22/20 Time of Appointment with Psychiatrist: 2:15 p.m. Psychiatric Appointment Comment: In person if back in [place], telehealth otherwise Therapist Name of Therapist: [facility] - Mela Donald Therapist's Date of Therapist Appointment: 05/21/20 Time of Therapist Appointment: 11:00 a.m. Therapy Appointment Comment: [id number] [id number], [place] [id number] Net Architect Name of Net Architect: [facility] - Oral Phone Number for Net Architect: [phone] Date of Appointment with Net Architect: 05/22/20 Time of Appointment with Net Architect: 10:00 a.m. Case Management Appointment Comment: Will call you Post Discharge Appointments Primary Care Physician Name Of Family Doctor: [facility] - Dr. Brian Greene Primary Care Time of Appointment with PCP: Please follow up as needed Provider Appointment Comment: [address], [address], [place] [address] Specialist Name of Specialist: [facility] BRICK MASON Phone Number for Specialist: [phone] Date of Appointment with Specialist: 06/18/20 Time of Appointment with Specialist: 8:30 a.m. Specialty Appointment Comment: [address] [place] [address] Smoking Cessation Counseling Tobacco Cessation Medication Prescribed at Discharge: Not Applicable/Non-Smoker Contact Information Discharge Discharge Address: [address] [place] [id number] Discharge Plan Discharge Items Patient Disposition: Home - Self-Care Reason For Visit: SUICIDAL IDEATION Discharge Diagnosis: Bipolar disorder type I Activity: Per Instructions section Non-emergency contact: Primary Care Provider, Manager Agriculture, Psychiatrist and Therapist Call non-emergency contact if: you have any medication questions and your symptoms worsen Follow-up/Referrals: PCP,NO [Primary Care Provider] - Diet: Regular Addtl Attending Provider Instructions: SPECIAL CARE INSTRUCTIONS: 1. Follow through with your scheduled aftercare appointments. If unable to keep an appointment, please call to reschedule. 2. Take your medication only as prescribed. Medication should not be changed or stopped without the approval of your doctor. In the event of worsening symptoms or concerns about side effects, contact your doctor immediately. 3. Utilize new healthy coping skills, anger management skills, and stress management skills learned during your hospitalization. Journal feelings and process them with a support person. Identify stressors or situations that may result in relapse, deterioration or inappropriate behaviors and develop a plan to deal with those issues. 4. If your coping skills are ineffective and you are in crisis, contact your outpatient providers for direction. If unable to reach your providers, please call the [facility] CRISIS LINE AT , go to the [facility] walk-in center at [address], [address], [place], or go to the closest Emergency Room. 5. Avoid alcohol and un-prescribed drugs. 6. You have been provided with the Mental Health Advance Directives Pamphlet for your review. AFTERCARE APPOINTMENTS: * Please call your insurance company prior to your scheduled appointment to confirm your aftercare providers are covered. Take your insurance information to your appointments. WHO TO CALL AND WHEN: Medical Emergencies: For questions or emergencies related to your hospital stay, please contact the Inpatient Behavioral Health Unit at [phone]. A jute bag cutting machine operator is on-call 19/01 for the Behavioral Health Unit for emergencies At any time you feel your situation is an emergency, you may also call 911 immediately. Pending Studies at Discharge: No Stand-Alone Forms: My [facility] [employer], Smoking Cessation Medications and DC Order Prescriptions: New quetiapine 25 mg Tablet 25 mg PO HS Qty: 30 RF: 0 lamotrigine [Lamictal] 25 mg Tablet 25 mg PO QAM Qty: 70 RF: 0 hydroxyzine HCl 25 mg Tablet 12.5 mg PO UD PRN (Reason: sleep or anxiety) Qty: 60 RF: 0 Continued norethindrone-ethin estradiol 1-35 mg-mcg Tablet 1 tab PO DAILY RF: 0 Discontinued lamotrigine [Lamictal] 25 mg Tablet 25 mg PO DAILY RF: 0 doxycycline hyclate 100 mg Capsule 100 mg PO BID RF: 0 Discharge Orders: Discharge Order (Routine); Ordered 05/21/20 Ordered By: Mela Kaye Admission Data Admit Date/Time: 05/15/20 22:26 Attending Provider: Mela Kaye Admit Provider: Mela Kaye Primary Care Provider: PCP,NO Other Interventions: Discharge Summary Assessment (RN) Last Done: 05/21/20 10:24 PSY Interdisciplinary Discharge Planning Last Done: 05/21/20 10:25 Coding Level of Care Code 78564 D/C day mgmt > 30 min Diagnoses Bipolar 1 disorder F31.9 Anorexia R63.0 Depersonalization F48.1 Folliculitis L73.9 Sexually active
== END 2020-05-21 10:49 | disposition home or self-care (01) | DRG 885 ==
LOC: ED 17:25 → 3S 22:19